=== PATIENT | female | born 1960 | race Caucasian/White ===

== ENCOUNTER 2019-02-08 18:11 | Emergency (ER) | payer MEDICARE, OTHER ==
--- NOTE | 2019-02-08 18:18 | ED Physician Documentation ---
Fall - HISTORIAN Historian: patient - HPI Stated Complaint: right hip pain after fall Chief Complaint: Hip Pain Onset: just prior to arrival Where: home Context: slipped r: moderate Associated Symptoms:: no loss of consciousness Location of Pain/Injury: lower extremity (ankle/foot), hip Injury to Right Extremity: hip, foot Injury to Left Extremity: none Further Comments: yes (She reports having one alcoholic drink and she was out for a girls day and she did slip and fell in some mud and she now has hip and foot pain. She denies any LOC she also denies any head injury denies any neck pain) - ROS CONST: no problems MS/SKIN/LYMPH: denies: back pain, leg swelling EYES/ENT: none CVS/RESP: none - PAST HX Past History: COPD Immunizations: UTD Allergies/Adverse Reactions: Allergies Allergy/AdvReac Type Severity Reaction Status Date / Time No Known Allergies Allergy Verified 02/08/19 18:19 Home Medications: Ambulatory Orders Medication Instructions Recorded Alprazolam [XANAX] 1 mg PO DAILY 05/20/16 Aripiprazole 30 mg PO DAILY 05/20/16 Escitalopram Oxalate 10 mg PO DAILY 05/20/16 Estradiol 0.5 mg PO DAILY 05/20/16 Mirtazapine 45 mg PO DAILY 05/20/16 Pregabalin [Lyrica] 150 mg PO DAILY 05/20/16 Promethazine HCl 25 mg PO DAILY 05/20/16 Risperidone [Risperdal] 1 mg PO DAILY 05/20/16 Tramadol HCl [Ultram] 50 mg PO Q4H PRN #15 tablet 05/20/16 - SOCIAL HX Smoking History: cigarettes Alcohol Use: rarely Drug Use: none - FAMILY HX Family History: none - VITAL SIGNS Vital Signs: Vital Signs Temp Pulse Resp BP Pulse Ox 120/58 05/20/16 09:24 - REVIEWED ASSESSMENTS Nursing Assessment Reviewed: Yes Vitals Reviewed: Yes Progress - Progress Progress: 1904: pt and daughter aware of fracture request to be transferred to [place] DG 1907: call into [facility] transfer center she will return call DG 1937: accepting Dr Jaimes of [place] DG 1947: states pain is improved to "tolerable" DG ED Results Lab/Radiology - Radiology Radiology Impressions: AP pelvis Clinical history pain fracture Findings: There is a displaced subcapital right femoral neck fracture with internal rotation of the distal fracture fragment. Lumbosacral fusion is present. Bilateral hip degenerative arthritis present. Degenerative arthritis of the sacroiliac joints Impression displaced right femoral neck fracture Electronically signed on Feb 08, 2019 6:54:55 PM CDT by: Moises Tavares Fall Physical Exam - Physical Exam General Appearance: no acute distress, alert Head: non-tender Neck: non-tender Eye: ALEXIS Resp/CVS: chest non-tender, breath sounds nml, no resp. distress Abdomen: soft, normal bowel sounds, no distension Neuro: oriented x3 Skin: color nml, no rash Back: normal inspection Extremities: pelvis stable, other (shortening of right hip. Abrasion on right lateral foot - no pain ---- pulses + sensation + Decreased ROM due to pain ). No: pulse deficit Joint: limited ROM, painful (right hip ) - [place] Coma Score Eyes Open: Spontaneous Speech: Oriented Motor: Obeys Commands Discharge Clincal Impression: Hip fracture, right Qualifiers: Encounter type: initial encounter Fracture type: closed Qualified Code(s): S72.001A - Fracture of unspecified part of neck of right femur, initial e ncounter for closed fracture Referrals: Giuliano Hansen [Primary Care Provider] - 2 Days Comments: Dr Jaimes Accepting at [facility] Condition: Fair Disposition: 02 XFER SHT-TRM HOSP Decision to Admit: NO Date of Decison to Admit: 02/08/19 Decision Time: 19:38
--- NOTE | 2019-02-08 19:01 | Diagnostic Imaging Report ---
SERA PARKER [facility] [address] [facility] [address] [address] Report Submission Date: Feb 08, 2019 6:56:58 PM CDT Patient Study Name: MILADIS BROWN Date: Feb 08, 2019 6:21:23 PM CDT Modality Type: DX Gender: F Description: RT HIP 2VIEW COMPLETE : 56 Institution: [facility] Physician: SERA PARKER Right hip 2 views Clinical history pain Technique AP and cross table lateral Findings: There is a subcapital displaced fracture of the right femoral neck with internal rotation the distal fracture fragment. Right hip degenerative arthritis is present. The pubic rami are intact Electronically signed on Feb 08, 2019 6:56:58 PM CDT by: Moises FREEMAN
--- NOTE | 2019-02-08 19:03 | Diagnostic Imaging Report ---
SERA PARKER [facility] [address] [facility] [address] [place], [place]. [address] Report Submission Date: Feb 08, 2019 6:54:55 PM CDT Patient Study Name: MILADIS BROWN Date: Feb 08, 2019 6:21:23 PM CDT Modality Type: DX Gender: F Description: PELVIS AP 1 OR 2 VIEWS : 56 Institution: [facility] Physician: SERA PARKER AP pelvis Clinical history pain fracture Findings: There is a displaced subcapital right femoral neck fracture with internal rotation of the distal fracture fragment. Lumbosacral fusion is present. Bilateral hip degenerative arthritis present. Degenerative arthritis of the sacroiliac joints Impression displaced right femoral neck fracture Electronically signed on Feb 08, 2019 6:54:55 PM CDT by: Moises FREEMAN
[2019-02-08 19:10] LABS: EOSINOPHILS % 1.4 % (0.0-6.8); MEAN CORPUSCULAR HEMOGLOBIN 30.7 pg (28.0-34.0); MONOCYTES % 5.6 % (0.0-11.0)
[2019-02-08] MEDS: 0.9 % SODIUM CHLORIDE 1,000 ML IV ONE (19:10)
[2019-02-08 19:11] LABS: NEUTROPHILS # 5.7 # k/uL (1.4-7.7)
[2019-02-08] MEDS: fentaNYL CITRATE/PF 100 MCG/2 ML INJ. IVP ONE ×2 (19:15→20:07)
[2019-02-08 19:52] LABS: eGFR (Non-African) > 60
[2019-02-08 20:53] LABS: CANNABINOIDS NON NEGATIVE ng/mL (< 50); METHYLENEDIOXYMETHAMPHETAMINE NEGATIVE ng/mL (<500)
[2019-02-08 20:54] LABS: APPEARANCE,URINE CLEAR (CLEAR); COLOR,URINE YELLOW (YELLOW); OCCULT BLOOD,URINE 2+ (NEGATIVE); PH URINE 5.5 (5.0 - 8.0)
[2019-02-08 20:55] LABS: UROBILINOGEN URINE 0.2 Eu (0.2-1.0)
[2019-02-08 20:59] VITALS: BP 161/80
== END 2019-02-08 20:30 | disposition short-term general hospital (02) ==
LOC: ED 18:11
DX: S72.001A Fracture of unspecified part of neck of right femur, initial encounter for closed fracture (principal); W01.0XXA Fall on same level from slipping, tripping and stumbling without subsequent striking against object, initial encounter; Y93.89 Activity, other specified; Y92.009 Unspecified place in unspecified non-institutional (private) residence as the place of occurrence of the external cause
CPT/HCPCS: 36415; 51702; 72170; 73502; 80053; 81002; 85025; 85610; 96374; 96376; 99285; G0480; G0481; J3010; J7030; 80320; 80377; S1016